=== PATIENT | male | born 1970 ===

== ENCOUNTER 2018-03-26 18:41 | Emergency (ER) | payer OTHER ==
[2018-03-26 18:52] VITALS: BP 126/84
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
== END 2018-03-26 20:24 | disposition home or self-care (01) ==
LOC: UCEAST 18:41
DX: S06.0X0A Concussion without loss of consciousness, initial encounter (principal); S13.4XXA Sprain of ligaments of cervical spine, initial encounter; Z88.1 Allergy status to other antibiotic agents; V43.52XA Car driver injured in collision with other type car in traffic accident, initial encounter; Y92.9 Unspecified place or not applicable
CPT/HCPCS: 70450; 72125; 99201; G0463